=== PATIENT | female | born 1955 | race Caucasian/White ===

== ENCOUNTER 2018-08-08 11:11 | Outpatient (CLI) | payer MEDICARE, BC | END 2018-08-08 11:12 | disposition home or self-care (01) | LOC: BICMAMMO 11:11 | PROVIDERS: ATTEND Family Medicine | DX: Z12.31 Encounter for screening mammogram for malignant neoplasm of breast (principal); Z80.3 Family history of malignant neoplasm of breast | CPT/HCPCS: 77063; 77067 ==

== ENCOUNTER 2018-08-12 12:48 | Outpatient (CLI) | payer MEDICARE, BC ==
--- NOTE | 2018-08-12 14:31 | ULT ---
LEFT BREAST ULTRASOUND LIMITED: History: 63-year-old female presents for left breast ultrasound to evaluate a nodular density on prior mammogr am. FINDINGS: In the 9 o'clock position of the left breast approximately 1 cm from the nipple there is an approxima tely 0.3 x 0.4 cm diameter cyst with a small thin septation which accounts for the mammographic findi ng. IMPRESSION: BIRADS category 2 - benign findings. Continued follow up annual mammograms. Small left breast cyst wi th a thin septation at 9 o'clock 1 cm from the nipple accounting for the mammographic findings. POS: [facility]
== END 2018-08-12 12:49 | disposition home or self-care (01) ==
LOC: BICMAMMO 12:48
PROVIDERS: ATTEND Family Medicine
DX: N63.24 Unspecified lump in the left breast, lower inner quadrant (principal); Z80.3 Family history of malignant neoplasm of breast
CPT/HCPCS: 76642; 77065; G0279

== ENCOUNTER 2018-10-14 09:05 | Outpatient (CLI) | payer MEDICARE, BC ==
--- NOTE | 2018-10-14 13:06 | RAD ---
RIGHT CLAVICLE 2 VIEWS: Date: 10/14/18 HISTORY: Localized swelling. COMPARISON: None. FINDINGS: There is no acute fracture or malalignment of the right clavicle. Mild right distal clavicular osteol ysis. Visualized ribs are unremarkable. IMPRESSION: No acute abnormality of the clavicle. POS: [facility]
--- NOTE | 2018-10-14 13:08 | RAD ---
STERNUM 2 VIEWS: Date: 10/14/18 HISTORY: Localized swelling. COMPARISON: None. FINDINGS: No acute fracture or malalignment. Soft tissues are unremarkable. IMPRESSION: No acute abnormality. POS: [facility]
--- NOTE | 2018-10-14 13:08 | RAD ---
LEFT CLAVICLE 2 VIEWS: Date: 10/14/18 HISTORY: Localized swelling. COMPARISON: None. FINDINGS: No acute fracture or malalignment. There are some calcifications of the superior acromioclavicular li gament. IMPRESSION: Calcifications of the superior coracoclavicular ligament, likely from prior trauma. No acute abnormal ity. POS: [facility]
== END 2018-10-14 09:06 | disposition home or self-care (01) ==
LOC: BICRAD 09:05
PROVIDERS: ATTEND Family Medicine
DX: R22.1 Localized swelling, mass and lump, neck (principal); M24.212 Disorder of ligament, left shoulder
CPT/HCPCS: 71120

== ENCOUNTER 2018-10-25 09:19 | Outpatient (CLI) | payer MEDICARE, BC ==
--- NOTE | 2018-10-25 12:29 | CT ---
CT CHEST WITHOUT CONTRAST: 10/25/2018 PROVIDED CLINICAL HISTORY: Sternoclavicular nodule. FINDINGS: Vascular calcification, including coronary calcium, is demonstrated. The heart, pericardium, and gre at vessels are suboptimally evaluated in the absence of IV contrast, but demonstrate an otherwise unr emarkable unenhanced CT appearance. There is no evidence for thoracic lymph node enlargement. Occasionally sub-6-mm noncalcified nodular densities are present involving the lung parenchyma. The lungs are free of significant opacity. The airway appears patent and of normal caliber. No pleural fluid or pneumothorax apparent. The osseous structures demonstrate no concerning osteoblastic or osteolytic lesions. Bilateral irene oclavicular and first costochondral junction hypertrophic changes are present. There is no evidence for sternoclavicular joint effusion. No lytic or blastic lesions are seen. IMPRESSION: 1. The region of palpable concern corresponds to hypertrophic sternoclavicular joint degenerative ch merari. No significant joint effusion is evident. 2. Vascular calcification, including coronary calcium. POS: [facility]
== END 2018-10-25 09:20 | disposition home or self-care (01) ==
LOC: SCSCT 09:19
PROVIDERS: ATTEND Orthopaedic Surgery
DX: M19.019 Primary osteoarthritis, unspecified shoulder (principal); I25.10 Atherosclerotic heart disease of native coronary artery without angina pectoris
CPT/HCPCS: 71250

== ENCOUNTER 2019-07-09 14:22 | Outpatient (CLI) | payer MEDICARE, BC ==
--- NOTE | 2019-07-09 14:39 | RAD ---
EXAM: Left wrist 3 views: HISTORY: Left wrist pain COMPARISON: None FINDINGS: Arthrosis changes of the triscaphe region and trapezium first metacarpal joint. Borderline widening of the scapholunate space. Evidence for chondrocalcinosis. Degenerative changes. No acute fracture or dislocation or other significant acute osseous abnormality. IMPRESSION: No significant acute process. Arthrosis and degenerative changes as above.
== END 2019-07-09 14:23 | disposition home or self-care (01) ==
LOC: BICRAD 14:22
PROVIDERS: ATTEND Family Medicine
DX: M25.532 Pain in left wrist (principal); M19.032 Primary osteoarthritis, left wrist

== ENCOUNTER 2019-11-26 08:58 | Outpatient (CLI) | payer MEDICARE, BC ==
--- NOTE | 2019-11-26 11:22 | ULT ---
HEPATIC ULTRASOUND INCLUDING COLOR AND SPECTRAL DOPPLER IMAGING: HISTORY: Dysphagia. Fatty liver. History of colonic polyps. FINDINGS: Heterogeneous liver echogenicity, evidence for fatty change. No evidence of gallstones, wall thickeni ng, edema or pericholecystic fluid. The common bile duct is 0.2 cm. The visualized region of the panc reas and right kidney are unremarkable. Antegrade hepatic and portal venous flow. IMPRESSION: Evidence for fatty changes of the liver. No ductal dilatation. Antegrade hepatic and portal venous fl ow. POS: [facility]
== END 2019-11-26 08:59 | disposition home or self-care (01) ==
LOC: ULT 08:58
PROVIDERS: ATTEND Internal Medicine Gastroenterology
DX: R13.10 Dysphagia, unspecified (principal); K76.0 Fatty (change of) liver, not elsewhere classified; Z86.010 Personal history of colon polyps
CPT/HCPCS: 76705

== ENCOUNTER 2020-01-19 14:25 | Outpatient (CLI) | payer MEDICARE, BC ==
--- NOTE | 2020-01-19 15:11 | MMO ---
Bilateral MAMMO Bilat Screen [facility]. CLINICAL HISTORY: Patient is 64 years old and is seen for screening. The patient has no family history of breast cancer. The patient has no personal history of cancer. VIEWS: The views performed were: bilateral craniocaudal with tomosynthesis; bilateral mediolateral oblique with tomosynthesis; and bilateral exaggerated craniocaudal. FILMS COMPARED: The present examination has been compared to prior imaging studies performed at [facility] on 03/28/2016, 08/07/2017, 08/08/2018 and 08/12/2018. This study has been interpreted with the assistance of computer-aided detection. MAMMOGRAM FINDINGS: There are scattered fibroglandular densities. There are stable benign appearing calcifications seen in both breasts. There are also vascular calcifications. There are no suspicious masses, suspicious calcifications, or new areas of architectural distortion. IMPRESSION: THERE IS NO MAMMOGRAPHIC EVIDENCE OF MALIGNANCY. A ROUTINE FOLLOW-UP MAMMOGRAM IN 1 YEAR IS RECOMMENDED. THE RESULTS OF THIS EXAM WERE SENT TO THE PATIENT. ACR BI-RADS Category 2 - Benign finding MAMMOGRAPHY NOTE: 1. A negative mammogram report should not delay a biopsy if a dominant of clinically suspicious mass is present. 2. Approximately 10% to 15% of breast cancers are not detected by mammography. 3. Adenosis and dense breasts may obscure an underlying neoplasm. Reported by: ROSEANN GALARZA MD Electonically Signed: [id number]
== END 2020-01-19 14:26 | disposition home or self-care (01) ==
LOC: BICMAMMO 14:25
PROVIDERS: ATTEND Family Medicine
DX: Z12.31 Encounter for screening mammogram for malignant neoplasm of breast (principal)
CPT/HCPCS: 77063; 77067

== ENCOUNTER 2020-07-26 19:38 | Inpatient (IN) | payer MEDICARE, BC, OTHER ==
[2020-07-26 20:40] LABS: #Eosinphils 0.1 thou/uL (0.0-0.7); #Lymphocytes 2.1 thou/uL (1.20-3.40); #Monocytes 0.8 thou/uL (0.11-0.59); #Neutrophils 5.3 thou/uL (1.40-6.50); %Basophils 0.4 % (0.0-1.0); %Eosinophils 0.8 % (0.0-10.0); %Lymphocytes 25.2 % (21.0-51.0); %Monocytes 9.2 % (0.0-10.0); %Neutrophils 64.4 % (42.0-75.0); Hemoglobin 14.9 g/dL (12.0-16.0); Mean Corpuscular HGB CONC 35.1 g/dL (32.0-36.0); Mean Corpuscular Hemoglobin 29.8 pg (27.0-31.0); Mean Corpuscular Volume 84.9 fL (78.0-98.0); Mean Platelet Volume 8.7 fL (7.4-10.4); Platelet Count 241 thou/uL (130-400); Red Blood Cell (RBC) Count 4.98 mill/uL (4.20-5.40); White Blood Cell (WBC) Count 8.3 thou/uL (4.8-10.8)
--- NOTE | 2020-07-26 20:56 | RAD ---
PORTABLE UPRIGHT FRONTAL CHEST RADIOGRAPH: Date: 07-26-2020 Comparison: None History: Hypokalemia, fatigue. FINDINGS: No pneumothorax, pleural fluid, focal consolidation, or alveolar edema. Heart and mediastinal contour s are unremarkable. IMPRESSION: No acute findings. POS: [facility]
[2020-07-26 21:00] LABS: ALT (SGPT) 20 U/L (8-55); AST (SGOT) 24 U/L (5-34); Alkaline Phosphatase 99 U/L (40-110); Anion Gap 21 mmol/L (10-20); BUN (Urea Nitrogen) 29 mg/dL (9.8-20.1); Bilirubin, Total 0.7 mg/dL (0.2-1.2); CK (CPK) 137 U/L (29-168); Calc. Creatinine Clearance 0 mL/min (70-130); Carbon Dioxide 32 mmol/L (23-31); Chloride 86 mmol/L (98-107); Estimated GFR-MDRD 27; Glucose 185 mg/dL (80-115); Magnesium 1.9 mg/dL (1.6-2.6); Sodium 137 mmol/L (136-145)
[2020-07-26] MEDS ORDERED: NS 0.9% w/ 40 MEQ KCL 1,000 ML IV SCH (21:00)
[2020-07-26 21:06] LABS: Potassium 2.2 mmol/L (3.5-5.1)
[2020-07-26] MEDS ORDERED: Magnesium 2 GM/50 ML BAG (IN WATER) ONE (21:13)
[2020-07-26] MEDS ORDERED: Potassium Chloride 20 MEQ TAB ONE (21:13)
--- NOTE | 2020-07-26 21:55 | CT ---
CT BRAIN: Date: 07/26/2020 PROVIDED CLINICAL HISTORY: Headache. FINDINGS: The ventricular system is normal in size and morphology. There is no evidence for intracranial hemorr beverley or mass effect. There is mucosal thickening involving the sphenoid sinus and ethmoid air cells. The extracranial soft tissues and osseous structures appear otherwise unremarkable. IMPRESSION: 1. No evidence for intracranial hemorrhage or mass effect. 2. Paranasal sinus mucosal disease as described. POS: [facility]
--- NOTE | 2020-07-26 22:07 | PDOC.FPRHP ---
- History of Present Illness Chief Complaint: Hypokalemia History of Present Illness: 65yo female with PMH of DMII presents after finding out she had critically low potassium. Reports weakness and overall not feeling well 3 weeks ago. Last week had one day when she vomitted 3 times. A few days ago on Sunday she was unable to walk and had weakness in her legs. Reports myalgias, dizziness. Dizziness occurs when she stands up, she feels as if she is going to pass out. C/o ataxia, says she "runs into [employer]er". 3 years ago she lost sight in her right eye and has some issues with depth perception. She intentionally has lost 50 pounds in the past year in an attempt to help with her diabetes. She saw Dr Thibodeaux earlier today. He stopped her lasix. ED Course: 60meq PO KCl, NS + KCl @150ml/hr, 2g Mg - Allergies/Adverse Reactions Allergies Allergy/AdvReac Type Severity Reaction Status Date / Time adhesive tape Allergy Verified 01/22/20 13:37 Latex, Natural Rubber Allergy Verified 07/26/20 23:58 Penicillins Allergy Verified 01/22/20 13:37 - Home Medications Medication Instructions Recorded Confirmed Type Furosemide [Lasix] 40 mg PO DAILY 08/25/15 07/27/20 History Hydrochlorothiazide 25 mg PO DAILY 08/25/15 07/27/20 History Levothyroxine Sodium [Synthroid] 112 mcg PO DAILY 08/25/15 07/27/20 History Potassium Chloride 10 meq PO BID 08/25/15 07/27/20 History metFORMIN XR [Glucophage XR] 1,000 mg PO BID 08/25/15 07/27/20 History Pregabalin [Lyrica] 75 mg PO HS 08/29/15 07/27/20 History Aspirin [Ecotrin] 81 mg PO DAILY 07/27/20 07/27/20 History Carvedilol [Coreg] 6.25 mg PO BID 07/27/20 07/27/20 History Dapagliflozin Propanediol [Farxiga] 1 tab PO DAILY 07/27/20 07/27/20 History Dulaglutide [Trulicity] 1.5 mg SQ ASDIR 07/27/20 07/27/20 History Ergocalciferol (Vitamin D2) 50,000 unit PO ASDIR 07/27/20 07/27/20 History [Vitamin D2] Insulin Degludec [Tresiba 14 unit SQ QAM 07/27/20 07/27/20 History Flextouch U-100] Rosuvastatin Calcium [Crestor] 40 mg PO QPM 07/27/20 07/27/20 History Ubidecarenone [Co Q-10] 200 mg PO DAILY 07/27/20 07/27/20 History tiZANidine HCl [Zanaflex] 2 mg PO QPM PRN 07/27/20 07/27/20 History - History PMHx: Right eye blindness, DMII, CAD w/ stent (Dr Vanessa- [employer] worker), HTN PSHx: Hysterectomy, laminectomy FHx: Mother- Heart disease Social: Denies tobacco and drug use. Occasional alcohol use. - Review of Systems General: reports: fatigue. denies: fever/chills, weight/appetite/sleep changes (decreased appetite) Eyes: reports: other (Right eye blindness) ENT: denies: nasal congestion, rhinorrhea Respiratory: denies: cough, congestion Cardiovascular: denies: chest pain, edema Gastrointestinal: reports: nausea, vomiting. denies: diarrhea, abdominal pain Genitourinary: reports: other (hesitancy) Skin: denies: rashes, lesions Musculoskeletal: denies: swelling Neurological: reports: numbness, weakness, other (Has hx of neuropathy, worsening) - Vital signs BP: 134/77 HR: 67 RR: 20 Pox: 98% on RA - Physical Exam Constitutional: NAD, awake, alert and oriented, well developed HEENT: normocephalic and atraumatic, PERRLA, conjunctiva clear, grossly normal hearing, MMM, oropharynx clear Neck: supple, trachea midline Heart: RRR -Heart: 2/6 holosystolic murmur heart at base Lungs: CTAB, no respiratory distress Abdomen: soft, non-tender, no masses/distention Musculoskeletal: normal structure, normal tone Neurological: no focal deficit -Neurological: Cerebellar tests- normal, negative [place], strength normal, sensation intact Skin: no rash/lesions Heme/Lymphatic: no unusual bruising or bleeding Psychiatric: normal mood and affect, good judgment and insight, intact recent and remote memory FMR H&P: Results - Labs Result Diagrams: 07/26/20 20:09 07/27/20 02:23 Lab results: WBC 8.3 thou/uL (4.8-10.8) 07/26/20 20:09 Hgb 14.9 g/dL (12.0-16.0) 07/26/20 20:09 Hct 42.3 % (36.0-47.0) 07/26/20 20:09 MCV 84.9 fL (78.0-98.0) 07/26/20 20:09 Plt Count 241 thou/uL (130-400) 07/26/20 20:09 Neutrophils % 64.4 % (42.0-75.0) 07/26/20 20:09 Sodium 137 mmol/L (136-145) 07/26/20 20:09 Potassium 2.2 mmol/L (3.5-5.1) L* 07/26/20 20:09 Chloride 86 mmol/L (98-107) L 07/26/20 20:09 Carbon Dioxide 32 mmol/L (23-31) H 07/26/20 20:09 BUN 29 mg/dL (9.8-20.1) H 07/26/20 20:09 Creatinine 1.85 mg/dL (0.6-1.1) H 07/26/20 20:09 Glucose 185 mg/dL (80-115) H 07/26/20 20:09 Calcium 9.0 mg/dL (7.8-10.44) 07/26/20 20:09 Total Bilirubin 0.7 mg/dL (0.2-1.2) 07/26/20 20:09 AST 24 U/L (5-34) 07/26/20 20:09 ALT 20 U/L (8-55) 07/26/20 20:09 Alkaline Phosphatase 99 U/L (40-110) 07/26/20 20:09 Creatine Kinase 137 U/L (29-168) 07/26/20 20:09 Serum Total Protein 7.0 g/dL (6.0-8.3) 07/26/20 20:09 Albumin 4.0 g/dL (3.4-4.8) 07/26/20 20:09 - EKG Interpretation EKG: reviewed, QTc 580 - Radiology Interpretation Chest x-ray Status: report reviewed by me (no acute findings) CT scan - head Status: report reviewed by me (no abnormalities) FMR H&P: A/P - Plan #Hypokalemia -K 2.2 -likely due to medications: lasix, HCTZ, also could be due to dehydration as pt states she is not eating and drinking as usual and had N/V -given IV K in ED, LR w/ KCl -continue to monitor, BMP, ekg in am #DENA -Cr 1.85, likely due to dehydration or medications -on IVF, monitor with BMP #Murmur -patient states this is new -echo and carotid doppler ordered #Ataxia -likely due to electrolyte imbalance, but will r/o CVA -CT Head was normal, will order MRI -fall precautions, orthostatics #DM2 -continue home meds -BG ACHS #HTN -continue home meds -hold HCTZ #CAD s/p stent -continue home meds #hypothyroidism -pending TSH -continue home meds Code: Full Diet: HH IVF: LR w/ KCl @ 110ml/hr DVT ppx: lovenox Dispo: Admit inpatient tele, stable, LOS >48hrs FMR H&P: Upper Level - Plan Date/Time: 07/26/202206 Ms Velasquez is a 65yo female with pmh of DMII presents to ED for critical lab of potassium. Over the last couple weeks she has not been feeling well and had an episode of vomiting last week. Reports dizziness and weakness. Also reports difficulty walking, feet numbness. She saw her PCP and had labs drawn today showing hypokalemia and DENA. PE: General: NAD CV: RRR, Systolic murmur radiating to carotids Pulm: CTA b/l Abdomen: Nontender. BS + Extremities: No edema Skin: No rash or lesions Neuro: See manager internet [employer] sales note. No focal deficits. A/P: Hypokalemia likely 2/2 medications -2.2, with Mg 1.8. Unclear cause, possible GI losses. Given 60meq PO and started on KCl in NS at 150 in ED. Will switch to LR and recheck K in 4 hours. Mg in AM. Hold HCTZ and Lasix. Admit to telemetry. Repeat EKG in AM Ataxia -Will need to rule out acute CVA as a cause however it is more likely due to hypokalemia. CT head in ED showed no acute findings. Avoid CTA of head and neck due to DENA. Ordered MRI and carotid US for further evaluation. Systolic Murmur -Also with abnormal EKG findings and possible CVA will go ahead and order Echo. DENA -Cr 1.85, no prior CKD. Likely 2/2 dehydration. Continue IVF, check BMP in AM. Anion Gap -19. Will check beta-hydroxybutyrate and lactic acid. I, Tameka Marquez, have evaluated this patient and agree with findings/plan as outlined by manager internet ret[employer] sales resident. Pertinent changes/additions are listed here. Addendum - Attending - Attending Attestation Date/Time: 07/26/20 1538 I personally evaluated the patient and discussed the management with Dr. Kulkarni/Jimmy. I agree with the History, Examination, Assessment and Plan documented above with any addition or exceptions noted below. 65-year-old female with past history of hypertension, hyperlipidemia, coronary artery disease, hypothyroidism, insulin-dependent type 2 diabetes, and right eye blindness. She presented after receiving a phone call from her PCPs office that she had at abnormally low potassium. Potassium from PCPs office was 2.2. Repeat in the ER was 2.3.she states over the past 2-3 weeks she has had pro gressively worsening dizziness, nausea, and multiple episodes of vomiting. She has been densely drawn to lose weight over the past 6 months due to her multiple chronic morbidities. States she takes oral Lasix for edema that she used to experience when she was much heavier. His recent changes in her medications. Reports compliance with medication therapy. Exam was unremarkable with exception of blindness in her right eye and heart murmur. Labs were otherwise unremarkable with exception of her critically low potassium. Admit inpatient telemetry for hypokalemia likely secondary to diuretic therapy and new onset nausea and vomiting. she appears to have a hypochloremic hypokalemic metabolic alkalosis versus a contraction alkalosis at this time. we will replete intravascular volume and potassium with IV fluids and IV potassium. closely monitor BMP. we will collect urine studies to better characterize her pathophysiology. Check TSH. Carotid Dopplers and MRI of the brain to evaluate dizziness. She had a normal neuro exam with the exception of blindness in her right eye which she states is chronic. echocardiogram to evaluate murmur.
[2020-07-26] MEDS ORDERED: Dextrose 50% Abboject 50 ML SYRINGE SLOW IVP PRN (23:26)
[2020-07-26] MEDS ORDERED: Dextrose 5% in Water 1,000 ML IV PRN (23:26)
[2020-07-26] MEDS ORDERED: Acetaminophen 650 MG Suppository PR PRN (23:26)
[2020-07-26] MEDS ORDERED: HumaLOG 300 UNITS/3 ML VIAL SC PRN ×2 (23:26)
[2020-07-26 23:28] LABS: Lactic Acid 2.3 mmol/L (0.5-2.2)
[2020-07-26] MEDS ORDERED: Potassium Chloride 20 MEQ in Lactated Ringer's 1,000 ML IV SCH (23:45)
[2020-07-26 23:57] LABS: Anion Gap 22 mmol/L (10-20); BUN (Urea Nitrogen) 29 mg/dL (9.8-20.1); Calc. Creatinine Clearance 0 mL/min (70-130); Carbon Dioxide 32 mmol/L (23-31); Chloride 87 mmol/L (98-107); Estimated GFR-MDRD 31; Glucose 143 mg/dL (80-115); Sodium 139 mmol/L (136-145)
[2020-07-27] LABS: Potassium 2.2 mmol/L (3.5-5.1)
[2020-07-27 02:49] LABS: Anion Gap 14 mmol/L (10-20); BUN (Urea Nitrogen) 28 mg/dL (9.8-20.1); Calc. Creatinine Clearance 44 mL/min (70-130); Calcium 8.9 mg/dL (7.8-10.44); Carbon Dioxide 35 mmol/L (23-31); Chloride 92 mmol/L (98-107); Estimated GFR-MDRD 36; Glucose 98 mg/dL (80-115); Sodium 139 mmol/L (136-145)
[2020-07-27 02:59] LABS: Potassium 2.4 mmol/L (3.5-5.1)
[2020-07-27] MEDS: POTASSIUM CHLORIDE IV SCH ×3 (05:01→21:50)
[2020-07-27] MEDS: LACTATED RINGER S IV SCH ×3 (05:01→21:50)
[2020-07-27] MEDS: Levothyroxine Sodium 112 MCG TAB PO SCH (05:05)
[2020-07-27 06:59] LABS: Anion Gap 15 mmol/L (10-20); BUN (Urea Nitrogen) 24 mg/dL (9.8-20.1); Calc. Creatinine Clearance 46 mL/min (70-130); Calcium 8.6 mg/dL (7.8-10.44); Carbon Dioxide 32 mmol/L (23-31); Chloride 95 mmol/L (98-107); Estimated GFR-MDRD 38; Glucose 81 mg/dL (80-115); Sodium 139 mmol/L (136-145)
[2020-07-27 07:12] LABS: Potassium 2.7 mmol/L (3.5-5.1)
--- NOTE | 2020-07-27 07:37 | ULT ---
BILATERAL CAROTID DUPLEX ULTRASOUND: HISTORY: Dizziness and weakness TECHNIQUE: Grayscale, color-flow and spectral Doppler ultrasound imaging of the extracranial carotid artery syst ems and vertebral arteries was performed bilaterally. FINDINGS: There is moderate atherosclerotic plaque involving the left carotid bulb and proximal left ICA. There is mild atherosclerotic plaque involving the proximal right ICA. There is minimal thickening of the common carotid arteries bilaterally. The peak systolic velocity in the right ICA measures 89.3 cm/s. The peak systolic velocity in the ri ght CCA measures 57.2 cm/s. The peak systolic velocity in the left ICA measures 44.1 cm/s. The peak systolic velocity in the l eft CCA measures 70.6 cm/s. The right IC/CC ratio is1.56. The left IC/CC ratio is 0.62. Vertebral flow: antegrade, bilaterally. . IMPRESSION: No hemodynamically significant stenosis of Both ICAs.
[2020-07-27] MEDS ORDERED: Potassium Chloride 20 MEQ in Premix Bag 1 BAG IVPB SCH ×3 (08:30→15:45)
[2020-07-27] MEDS: Ubidecarenone 50 MG CAP PO SCH (08:52)
[2020-07-27] MEDS: Aspirin 81 mg Enteric Coated Tablet PO SCH (08:52)
[2020-07-27] MEDS: metFORMIN XR 500 MG TAB PO SCH ×2 (08:52→20:57)
[2020-07-27] MEDS: Empagliflozin 25 MG TAB PO SCH (08:53)
[2020-07-27] MEDS: Enoxaparin Sodium 40 MG/0.4 ML SYRINGE SC SCH (08:53)
[2020-07-27] MEDS: Potassium Chloride 20 MEQ TAB PO SCH ×2 (08:53→16:32)
[2020-07-27] MEDS: Carvedilol 6.25 MG TAB PO SCH ×2 (08:53→20:57)
[2020-07-27] MEDS: Insulin Glargine 14 UNITS in Pre-Filled Syringe 1 EACH SC SCH (08:53)
[2020-07-27] MEDS ORDERED: Non-Formulary Item 1 EACH (Insulin Degludec [Tresiba Flextouch U-100] 100 UNIT/ML Insuln. SQ SCH (09:00)
[2020-07-27] MEDS ORDERED: Non-Formulary Item 1 EACH (Dapagliflozin Propanediol [Farxiga] 10 MG Tablet) PO SCH (09:00)
[2020-07-27] MEDS ORDERED: Nitrofurantoin Monohyd/M-Cryst 100 MG CAP PO SCH (09:00)
[2020-07-27] MEDS ORDERED: Dulaglutide [Trulicity] 1.5 MG/0.5 ML Pen.Injctr SC SCH (09:00)
--- NOTE | 2020-07-27 11:05 | PDOC.FM ---
- Subjective Subjective: Patient feeling well this morning. Denies any complaints. States she cannot really tell if dizziness has changed since has not tried to walk around the room. Encouraged to try to ambulate with assistance today. - Objective MAR Reviewed: Yes Vital Signs & Weight: Vital Signs (12 hours) Temp Pulse Resp BP Pulse Ox 07/27/20 08:00 97.0 F L 71 17 131/73 99 07/27/20 04:35 98.3 F 60 20 119/58 L 07/26/20 23:55 99 07/26/20 23:50 98.9 F 64 20 162/77 H 99 Weight Weight 73.754 kg I&O: 07/26/20 07/27/20 07/28/20 06:59 06:59 06:59 Intake Total 1255 Output Total 450 Balance 805 Result Diagrams: 07/26/20 20:09 07/27/20 06:30 Phys Exam - Physical Examination Constitutional: NAD HEENT: moist MMs, sclera anicteric Neck: full ROM Respiratory: clear to auscultation bilateral Cardiovascular: RRR grade II/III systolic murmur over aortic valve Gastrointestinal: soft, positive bowel sounds Musculoskeletal: no edema, pulses present Neurological: normal sensation, moves all 4 limbs Psychiatric: normal affect, A&O x 3 Skin: no rash, normal turgor Dx/Plan (1) Hypokalemia Code(s): E87.6 - HYPOKALEMIA Status: Acute (2) Dehydration Code(s): E86.0 - DEHYDRATION Status: Acute (3) Diabetes mellitus Code(s): E11.9 - TYPE 2 DIABETES MELLITUS WITHOUT COMPLICATIONS Status: Chronic Qualifiers: Diabetes mellitus type: type 2 Diabetes mellitus complication status: without complication Qualified Code(s): E11.9 - Type 2 diabetes mellitus without complications (4) Hypertension Code(s): I10 - ESSENTIAL (PRIMARY) HYPERTENSION Status: Chronic Qualifiers: Hypertension type: essential hypertension Qualified Code(s): I10 - Essential (primary) hypertension (5) Hypothyroidism Code(s): E03.9 - HYPOTHYROIDISM, UNSPECIFIED Status: Chronic Qualifiers: Hypothyroidism type: acquired Qualified Code(s): E03.9 - Hypothyroidism, unspecified - Plan Plan: Patient is a 65 yo female who presents with low potassium: #Hypokalemia -K 2.2 > 2.7 this AM, continue to replace -likely due to medications: lasix, HCTZ, also dehydration could be contributing as pt states she is not eating and drinking as usual and had N/V -given IV K in ED, LR w/ KCl -continue to monitor -repeat BMP at 1300 today -IV KCl prn, rukhsana PO KCl 40 meq BID #DENA -likely due to dehydration or medications -Cr 1.85 > 1.37 this am, improving -on IVF, LR with KCl 110 ml/hr -monitor with BMP #Systolic Murmur -patient states this is new to her -echo pending -carotid doppler normal #Ataxia -likely due to electrolyte imbalance, but will r/o CVA -CT Head was normal, will order MRI -fall precautions, orthostatics #DM2 -continue home meds -BG ACHS #HTN -continue home meds -hold HCTZ #CAD s/p stent -continue home meds #Hypothyroidism -TSH 0.88 -continue home meds Code: Full Diet: HH IVF: LR w/ KCl 60 meq @ 110ml/hr DVT ppx: lovenox Dispo: Stable, Admit to inpatient on telemetry unit. Obtain further imaging studies today. Continue to replace Potassium. Anticipate discharge in <48hrs. Addendum - Attending - Attending Attestation Date/Time: 07/27/20 3149 I personally evaluated the patient and discussed the management with Dr. Capellan. I agree with the History, Examination, Assessment and Plan documented above with any addition or exceptions noted below.
[2020-07-27] MEDS: Acetaminophen 325 MG TAB PO PRN ×2 (12:46→20:56)
[2020-07-27 13:24] VITALS: BMI 24.7
[2020-07-27 15:24] LABS: Anion Gap 15 mmol/L (10-20); BUN (Urea Nitrogen) 22 mg/dL (9.8-20.1); Calc. Creatinine Clearance 52 mL/min (70-130); Calcium 8.6 mg/dL (7.8-10.44); Carbon Dioxide 27 mmol/L (23-31); Chloride 98 mmol/L (98-107); Estimated GFR-MDRD 44; Glucose 116 mg/dL (80-115); Sodium 137 mmol/L (136-145)
--- NOTE | 2020-07-27 15:30 | MRI ---
MRI BRAIN WITHOUT CONTRAST: Date: 07/27/2020 HISTORY: Ataxia, vomiting, and weakness. Headache. FINDINGS: Correlation made with the CT scan of 07/26/2020. No restricted diffusion is seen. No evidence of infarct, hemorrhage, midline shift, or abnormal extra -axial fluid collections are noted. The ventricular size is appropriate and the basilar cisterns are patent. There is mild mucosal disease in the paranasal sinuses. IMPRESSION: No evidence of acute intracranial process. POS: [facility]
[2020-07-27] MEDS ORDERED: Pregabalin 75 MG CAP PO SCH (21:00)
[2020-07-27] MEDS ORDERED: Rosuvastatin 20 MG TAB PO SCH (21:00)
[2020-07-27] MEDS ORDERED: Pregabalin 50 MG CAP PO SCH (21:00)
[2020-07-28 04:43] LABS: Anion Gap 13 mmol/L (10-20); BUN (Urea Nitrogen) 19 mg/dL (9.8-20.1); Calc. Creatinine Clearance 54 mL/min (70-130); Calcium 8.3 mg/dL (7.8-10.44); Carbon Dioxide 24 mmol/L (23-31); Chloride 105 mmol/L (98-107); Estimated GFR-MDRD 46; Glucose 101 mg/dL (80-115); Potassium 3.5 mmol/L (3.5-5.1); Sodium 138 mmol/L (136-145)
[2020-07-28] MEDS: Levothyroxine Sodium 112 MCG TAB PO SCH (05:14)
[2020-07-28] MEDS: Lactated Ringer's 1,000 ML IV SCH ×2 (05:30→09:10)
[2020-07-28 08:01] VITALS: BP 127/80; TEMP 96.1
[2020-07-28] MEDS ORDERED: Furosemide 20 MG TAB PO SCH (09:00)
[2020-07-28] MEDS: Ubidecarenone 50 MG CAP PO SCH (09:07)
[2020-07-28] MEDS: Potassium Chloride 20 MEQ TAB PO SCH (09:07)
[2020-07-28] MEDS: Carvedilol 6.25 MG TAB PO SCH (09:08)
[2020-07-28] MEDS: Empagliflozin 25 MG TAB PO SCH (09:08)
[2020-07-28] MEDS: Aspirin 81 mg Enteric Coated Tablet PO SCH (09:08)
[2020-07-28] MEDS: metFORMIN XR 500 MG TAB PO SCH (09:08)
[2020-07-28] MEDS: Enoxaparin Sodium 40 MG/0.4 ML SYRINGE SC SCH (09:09)
[2020-07-28] MEDS: Insulin Glargine 14 UNITS in Pre-Filled Syringe 1 EACH SC SCH (09:09)
--- NOTE | 2020-07-28 09:30 | PDOC.FM ---
- Subjective Subjective: Patient states she feels well this morning. Denies any headaches, lightheadedness, or dizziness. Discussed results of all her studies yesterday including CT head, MRI head, carotid dopplers, and cardiac ECHO. Her potassium has also improved back up to 3.5 this morning. Patient says she took Lasix for swelling and HCTZ for blood pressure, these have been held since admission. Her blood pressures have been normotensive during this hospital stay. Patient does state she feels like her hands and lower legs are starting to swell again this morning. - Objective MAR Reviewed: Yes Vital Signs & Weight: Vital Signs (12 hours) Temp Pulse Resp BP Pulse Ox 07/28/20 08:00 96.1 F L 52 L 17 127/80 100 07/28/20 05:20 98.0 F 61 16 102/66 Weight Admit Weight 73.482 kg Weight 75.886 kg I&O: 07/27/20 07/28/20 07/29/20 06:59 06:59 06:59 Intake Total 1255 2907 Output Total 450 2450 Balance 805 457 Result Diagrams: 07/26/20 20:09 07/28/20 03:52 Phys Exam - Physical Examination Constitutional: NAD HEENT: moist MMs, sclera anicteric Neck: no JVD, supple, full ROM Respiratory: no wheezing, clear to auscultation bilateral Cardiovascular: RRR grade II systolic murmur over aortic valve Gastrointestinal: soft, non-tender, no distention Musculoskeletal: no edema, pulses present Neurological: normal sensation, moves all 4 limbs Psychiatric: normal affect, A&O x 3 Skin: no rash, normal turgor Dx/Plan (1) Hypokalemia Code(s): E87.6 - HYPOKALEMIA Status: Acute (2) Dehydration Code(s): E86.0 - DEHYDRATION Status: Acute (3) Diabetes mellitus Code(s): E11.9 - TYPE 2 DIABETES MELLITUS WITHOUT COMPLICATIONS Status: Chronic Qualifiers: Diabetes mellitus type: type 2 Diabetes mellitus complication status: without complication Qualified Code(s): E11.9 - Type 2 diabetes mellitus without complications (4) Hypertension Code(s): I10 - ESSENTIAL (PRIMARY) HYPERTENSION Status: Chronic Qualifiers: Hypertension type: essential hypertension Qualified Code(s): I10 - Essential (primary) hypertension (5) Hypothyroidism Code(s): E03.9 - HYPOTHYROIDISM, UNSPECIFIED Status: Chronic Qualifiers: Hypothyroidism type: acquired Qualified Code(s): E03.9 - Hypothyroidism, unspecified - Plan Plan: Patient is a 65 yo female who presents with low potassium: #Hypokalemia -K 2.2 > 3.5 this AM, continue to replace with home dose -likely due to medications: lasix, HCTZ, also dehydration could be contributing as pt states she is not eating and drinking as usual and had N/V -given IV K in ED, LR w/ KCl until 07/28, transition to plain LR -continue to monitor -rukhsana PO KCl 40 meq BID -will plan to restart Lasix 20 mg (half of her home dose), instructed patient to discontinue HCTZ and will need to continue to monitor home BP -may consider starting Spironolactone instead of Lasix in the future, can discuss outpatient with PCP #DENA -likely due to dehydration or medications -Cr 1.85 > 1.17 this am, improving -on IVF, LR 110 ml/hr -monitor with BMP #Systolic Murmur -patient states this is new to her -echo shows EF 60-65%, diastolic dysfunction, aortic leaflets thickened with some calcifications -carotid doppler normal -follows with [facility] at [facility], instructed patient to sign a release of records when discharged to 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 Imaging studies normal. Continue to replace Potassium. Anticipate discharge later today. Addendum - Attending - Attending Attestation Date/Time: 07/28/20 0932 I personally evaluated the patient and discussed the management with Dr. Capellan. I agree with the History, Examination, Assessment and Plan documented above with any addition or exceptions noted below.
[2020-07-28 12:01] LABS: SARS-CoV-2 MS2 Positive; SARS-CoV-2 N Gene Negative; SARS-CoV-2 S Gene Negative; SARS-CoV-2 by NAA Not Detected (NotDetected); SARS-CoV-2 orf1ab Negative
--- NOTE | 2020-07-29 04:51 | PQF ---
CLINICAL DOCUMENTATION CLARIFICATION FORM: Dear : Ken Carrillo Date / Time: 07/29/2020 0468 Please exercise your independent, professional judgment in responding to the clarification form. Clinical indicators are provided on the bottom of this form for your review Please check appropriate box(es): [ ] Protein Calorie Malnutrition: [ ] Mild [ ] Moderate [ ] Severe [ ] Other Malnutrition (please specify) [ ] Underweight without malnutrition [ ] Cachexia [ ] Other diagnosis [ x ] Unable to determine In addition, please specify: Present on Admission (POA): [ ] Yes [ ] No [ x ] Unable to determine Physician Signature: Date/Time: For continuity of documentation, please document condition throughout progress notes and discharge summary. Thank You. To be completed by CDI/Coding staff for physician review: Present Clinical Indicators - Signs / Symptoms / Labs Results and Location in Medical Record [X] BP 162/77, Pulse 64, Resp 20, Temp 98.9 Vital signs 07/26 [X] Serum Shanika protein 7.0, Albumin 4.0, Globulin 3.0, Ratio 1.3 Laboratory 07/26 [X] BMI 25.4 Nutritional assessment Dietitian Fraire 07/27 [X] Poor appetite Nutritional assessment Dietitian Fraire 07/27 [X] Pt report of no PO intake several days last week. 25% weight loss in the last year with unintentional 2.4% loss in last 2 weeks Nutritional assessment Dietitian Fraire 07/27 Present Risk Factors Results and Location in Medical Record [X] 65 year-old Female Nutritional assessment Dietitian Fraire 07/27 [X] Hypokalemia Nutritional assessment Dietitian Fraire 07/27 [X] Dehdyration Nutritional assessment Dietitian Fraire 07/27 [X] DENA Nutritional assessment Dietitian Fraire 07/27 [X] DM Nutritional assessment Dietitian Fraire 07/27 Present Treatments Results and Location in Medical Record [X] Dietary consult Nutritional assessment Dietitian Fraire 07/27 [X] Nutritional supplements Nutritional assessment Dietitian Fraire 07/27 [X] Weight monitoring Nutritional assessment Dietitian Cope 07/27 [X] Oral intake mornitoring Nutritional assessment Dietitian Cope 07/27 [X] Appetite stimulant - medication Nutritional assessment Dietitian Cope 07/27 CDS/Beef Skinner Signature: Casandra Kirk Phone #: ext [phone] Date/Time: 07/29/2020 045 Moderate Malnutrition (in acute illness) ? Energy Intake: <75% of estimated energy requirement for > 7 days ? Weight Loss: 1-2%/1 week; 5%/ 1 month; 7.5%/3 months ? Other: mild body fat loss; mild muscle mass loss; mild fluid accumulation; Severe Malnutrition (in acute illness) ? Energy Intake: ? 50% of estimated energy requirement for ? 5 days ? Weight Loss: >2%/1 week; >5%/1 month; >7.5%/3 months ? Other: moderate body fat loss; moderate muscle mass loss; moderate- severe fluid accumulation; measurably reduced creative writing teacher strength Moderate Malnutrition (in chronic illness) ? Energy Intake: <75% of estimated energy requirement for ?1 month ? Weight Loss: 5%/1 month; 7.5%/3 months; 10%/6 months; 20%/1 year ? Other: mild body fat loss; mild muscle mass loss; mild fluid accumulation Severe Malnutrition (in chronic illness) ? Energy Intake: ?75% of estimated energy requirement for ?1 month ? Weight Loss: >5%/1 month; >7.5%/3 months; >10%/6 months; >20%/1 year ? Other: severe body fat loss; severe muscle mass loss; severe fluid accumulation; measurably reduced creative writing teacher strength This is a permanent part of the Medical Record [facility]
--- NOTE | 2020-07-29 13:05 | DIS ---
DATE OF ADMISSION: 07/26/2020 DATE OF DISCHARGE: 07/28/2020 RESIDENT: Alana Capellan DO ADMITTING ATTENDING: Jamie Garcia MD DISCHARGE ATTENDING: Ken Carrillo MD CONSULTS: None. PROCEDURES: 1. Chest x-ray on July 26, 2020: No acute findings. 2. Brain CT on July 26, 2020: No evidence for intracranial hemorrhage or mass effect. Paranasal sinus mucosal disease noted. 3. Carotid Doppler study on July 27, 2020: No hemodynamically significant stenosis of both ICAs. 4. Brain MRI on July 27, 2020: No evidence of acute intracranial process. There is mild mucosal disease in the paranasal sinuses. 5. Echocardiogram on July 27, 2020: Ejection fraction estimated at 60% to 65%. Diastolic dysfunction. Mild mitral annular calcification present. Trace mitral regurgitation present. Aortic valve leaflets are somewhat thickened. Mild calcifications. Trace tricuspid regurgitation. PRIMARY DIAGNOSIS: Hypokalemia. SECONDARY DIAGNOSES: 1. Acute kidney injury. 2. Systolic murmur. 3. Ataxia of gait. 4. Type 2 diabetes mellitus. 5. Hypertension. 6. Coronary artery disease, status post stent placement. 7. Hypothyroidism. DISCHARGE MEDICATIONS: 1. Levothyroxine 112 mcg p.o. daily. 2. Metformin XR 1000 mg p.o. b.i.d. 3. Potassium chloride 10 mEq p.o. b.i.d. 4. Lyrica 75 mg p.o. at bedtime. 5. Aspirin 81 mg p.o. daily. 6. CoQ10 of 200 mg p.o. daily. 7. Trulicity 1.5 mg subcu as directed. 8. Farxiga 10 mg p.o. daily. 9. Tresiba FlexTouch 14 units subcu q.a.m. 10. Vitamin D2 of 50,000 units p.o. as directed. 11. Carvedilol 6.25 mg p.o. b.i.d. 12. Rosuvastatin 40 mg p.o. at bedtime. 13. Tizanidine 2 mg p.o. at bedtime as needed. 14. Furosemide 20 mg p.o. daily. DISCONTINUED MEDICATIONS: 1. Hydrochlorothiazide 25 mg p.o. daily. 2. Furosemide 40 mg p.o. daily. HISTORY OF PRESENT ILLNESS/HOSPITAL COURSE: The patient is a 65-year-old female who presents for direct admission after she was found to have a critically low potassium of 2.2 on labs with her PCP, Dr. Thibodeaux. The patient reported that she felt weak for about three weeks. She also had some episodes of vomiting. A few days prior to admission, she states she had some difficulty with walking, felt weak in her legs, and reported dizziness upon standing. The patient says she has been "running into heller" over the last month or so. She intentionally has lost 50 to 75 pounds in the last one year in an attempt to help with her diabetes and hypertension. The patient was sent by her PCP to the emergency department due to low potassium. In the emergency department, she was given 60 mEq p.o. potassium chloride, started on IV fluids of normal saline with 60 mEq of potassium with a rate of 150 mL/h. Also given 2 g of magnesium IVPB. The patient was admitted to the telemetry unit for further monitoring and replacement of potassium. She had several studies completed with results as above for investigation of her gait ataxia. These all resulted as normal. The patient also was noted on exam to have a systolic murmur. An echocardiogram and carotid Doppler studies were completed with results as above. Over the course of the next two days, the patient's potassium slowly increased back to a normal level upon discharge of 3.5. The patient was instructed to discontinue hydrochlorothiazide. She was also instructed to decrease her Lasix dose from 40 mg down to 20 mg daily. The patient needs to continue taking her supplemental potassium tablets at home as instructed by her PCP. The patient was discharged home in stable condition on the afternoon of July 28, 2020. DISPOSITION: Stable. DISCHARGE INSTRUCTIONS: 1. Location: Home. 2. Diet: Heart healthy. 3. Activity: As tolerated. 4. Followup: Follow up with Dr. Thibodeaux in 2 to 3 days for hospital followup. Job ID: [id number]
[2020-08-01] MEDS ORDERED: Ergocalciferol 1.25 MG(50,000 UNITS) CAP PO SCH (09:00)
--- NOTE | 2020-08-01 12:47 | EKG ---
Test Reason : Blood Pressure : / mmHG Vent. Rate : 059 BPM Atrial Rate : 059 BPM P-R Int : 168 ms QRS Dur : 104 ms QT Int : 456 ms P-R-T Axes : 058 -06 264 degrees QTc Int : 451 ms Sinus bradycardia T wave abnormality, consider lateral ischemia Abnormal ECG Confirmed by JOHNSON OLIVEIRA MD ([id number]) on 08/01/2020 12:47:35 PM Referred By: CARLOS *R Confirmed By:JOHNSON OLIVEIRA MD
== END 2020-07-28 14:14 | disposition home or self-care (01) | DRG 683 ==
LOC: ERS 19:38 → 2NO 22:05
PROVIDERS: ADMIT Family Medicine; ATTEND Family Medicine
DX: N17.9 Acute kidney failure, unspecified (principal); E87.3 Alkalosis; Z20.828 Contact with and (suspected) exposure to other viral communicable diseases; E87.6 Hypokalemia; H54.40 Blindness, one eye, unspecified eye; I25.10 Atherosclerotic heart disease of native coronary artery without angina pectoris; I10 Essential (primary) hypertension; E11.40 Type 2 diabetes mellitus with diabetic neuropathy, unspecified; E86.0 Dehydration; R01.1 Cardiac murmur, unspecified; R27.0 Ataxia, unspecified; E03.9 Hypothyroidism, unspecified; E87.8 Other disorders of electrolyte and fluid balance, not elsewhere classified; T50.1X5A Adverse effect of loop [high-ceiling] diuretics, initial encounter; T50.2X5A Adverse effect of carbonic-anhydrase inhibitors, benzothiadiazides and other diuretics, initial encounter; Z95.5 Presence of coronary angioplasty implant and graft; Z91.040 Latex allergy status; Z88.0 Allergy status to penicillin; Z91.048 Other nonmedicinal substance allergy status; Z79.899 Other long term (current) drug therapy; Z79.890 Hormone replacement therapy; Z79.84 Long term (current) use of oral hypoglycemic drugs; Z90.710 Acquired absence of both cervix and uterus
CPT/HCPCS: 36415; 36416; 70450; 70551; 71045; 80048; 80053; 80061; 81001; 82010; 82550; 83036; 83605; 83735; 83930; 84443; 84484; 85025; 87086; 87635; 93005; 93010; 93306; 93880; J1650; J1815; J3475; J3480; J7120; U0003

== ENCOUNTER 2020-08-23 15:10 | Outpatient (CLI) | payer MEDICARE, BC ==
--- NOTE | 2020-08-23 16:56 | RAD ---
Exam:4 views right elbow HISTORY: Pain. Fell 3 weeks ago. COMPARISON: None FINDINGS: No fracture, cortical irregularity or periosteal reaction. No joint effusion. IMPRESSION: No fracture.
== END 2020-08-23 15:11 | disposition home or self-care (01) ==
LOC: BICRAD 15:10
PROVIDERS: ATTEND Family Medicine
DX: M25.521 Pain in right elbow (principal)
CPT/HCPCS: 36415; 80048

== ENCOUNTER 2022-04-13 10:56 | Outpatient (CLI) | payer MEDICARE, BC | END 2022-04-13 10:57 | disposition home or self-care (01) | LOC: BICMAMMO 10:56 | PROVIDERS: ATTEND Family Medicine | DX: Z12.31 Encounter for screening mammogram for malignant neoplasm of breast (principal) | CPT/HCPCS: 77063; 77067 ==

== ENCOUNTER 2022-09-26 08:50 | Outpatient (CLI) | payer MEDICARE, BC | END 2022-09-26 08:51 | disposition home or self-care (01) | LOC: TBSIIMAG 08:50 | PROVIDERS: ATTEND Specialist | DX: M51.16 Intervertebral disc disorders with radiculopathy, lumbar region (principal); M48.061 Spinal stenosis, lumbar region without neurogenic claudication; M50.021 Cervical disc disorder at C4-C5 level with myelopathy; M50.121 Cervical disc disorder at C4-C5 level with radiculopathy; M50.022 Cervical disc disorder at C5-C6 level with myelopathy; M50.122 Cervical disc disorder at C5-C6 level with radiculopathy; M50.023 Cervical disc disorder at C6-C7 level with myelopathy; M50.123 Cervical disc disorder at C6-C7 level with radiculopathy; M50.11 Cervical disc disorder with radiculopathy, high cervical region; M48.02 Spinal stenosis, cervical region; G95.89 Other specified diseases of spinal cord | CPT/HCPCS: 72141; 72148 ==

== ENCOUNTER 2022-11-09 14:44 | Outpatient (CLI) | payer MEDICARE, BC ==
[2022-11-09 16:42] LABS: Hemoglobin 13.5 g/dL (12.0-15.5); Mean Corpuscular HGB CONC 32.9 g/dL (32.0-36.0); Mean Corpuscular Hemoglobin 29.2 pg (27.0-33.0); Mean Corpuscular Volume 88.6 fl (81.6-98.3); Mean Platelet Volume 10.6 fl (7.4-10.4); Platelet Count 238 10x3/uL (150-450); RBC Distribution Width 13.9 % (11.5-14.5); Red Blood Cell (RBC) Count 4.63 10x6/uL (3.90-5.03); White Blood Cell (WBC) Count 4.7 10x3/uL (3.5-10.5)
[2022-11-09 16:57] LABS: PTT 22.8 sec (22.0-33.0); Prothrombin Time 10.9 sec (9.5-12.1)
[2022-11-09 17:23] LABS: Anion Gap 18 mmol/L (10-20); BUN (Urea Nitrogen) 9 mg/dL (9.8-20.1); Calc. Creatinine Clearance 0 mL/min (70-130); Calcium 9.2 mg/dL (7.8-10.44); Carbon Dioxide 22 mmol/L (23-31); Chloride 105 mmol/L (98-107); Estimated GFR 89; Glucose 150 mg/dL (80-115); Potassium 4.1 mmol/L (3.5-5.1); Sodium 141 mmol/L (136-145)
== END 2022-11-09 14:45 | disposition home or self-care (01) ==
LOC: LABBT 14:44
PROVIDERS: ATTEND Surgery
DX: Z01.818 Encounter for other preprocedural examination (principal); M48.02 Spinal stenosis, cervical region; M54.12 Radiculopathy, cervical region
CPT/HCPCS: 80048; 85027; 85610; 85730; 93005; 93010

== ENCOUNTER 2022-11-09 14:45 | Inpatient (IN) | payer MEDICARE, BC ==
[2022-11-14] MEDS ORDERED: Thrombin 5000 UNITS/5 ML VIAL ONE (11:17)
[2022-11-14] MEDS ORDERED: Fentanyl 250 MCG/5 ML VIAL ONE (12:04)
[2022-11-14] MEDS ORDERED: Levofloxacin 500 mg/D5W 100 ml Premix Bag ONE (12:10)
[2022-11-14] MEDS ORDERED: Clindamycin/D5W 900 mg/50 ml Premix Bag ONE (12:10)
[2022-11-14] MEDS ORDERED: Phenylephrine 10 MG/ML VIAL ONE (12:26)
[2022-11-14] MEDS ORDERED: Metoclopramide HCl 10 MG/2 ML VIAL ONE (12:30)
[2022-11-14] MEDS ORDERED: Rocuronium Bromide 10 MG/ML (10ML VIAL) ONE (12:30)
[2022-11-14] MEDS ORDERED: Dexamethasone 20 MG/5 ML VIAL ONE (12:30)
[2022-11-14] MEDS ORDERED: PROPOFOL 200 MG/20 ML VIAL ONE (12:30)
[2022-11-14] MEDS ORDERED: Ondansetron PF 4 MG/2 ML Vial ONE (12:30)
[2022-11-14] MEDS ORDERED: Lidocaine 1% PF 5 ML VIAL ONE (12:30)
[2022-11-14] MEDS ORDERED: Dextrose 50% Abboject 50 ML SYRINGE ONE (12:36)
[2022-11-14 12:37] LABS: SARS-CoV-2 NAA Rapid Test DETECTED (NotDetected)
[2022-11-14] MEDS ORDERED: traMADol HCl 50 MG TAB PO PRN (12:59)
[2022-11-14] MEDS ORDERED: Morphine 2 MG/ML VIAL SLOW IVP PRN (12:59)
[2022-11-14] MEDS ORDERED: Ondansetron PF 4 MG/2 ML Vial IVP PRN (12:59)
[2022-11-14] MEDS ORDERED: Acetaminophen 325 MG TAB PO PRN (12:59)
[2022-11-14] MEDS ORDERED: Acetaminophen/Codeine 30-300mg Tablet PO PRN (12:59)
[2022-11-14] MEDS ORDERED: tiZANidine HCl 4 MG TAB PO PRN (13:03)
[2022-11-14] MEDS ORDERED: Cepastat Lozenges 1 LOZ PO PRN (13:04)
[2022-11-14] MEDS ORDERED: hydrALAZINE 20 MG/ML VIAL SLOW IVP PRN (13:04)
[2022-11-14] MEDS ORDERED: Chloraseptic Spray 180 ml Bottle PO PRN (13:04)
[2022-11-14] MEDS ORDERED: SUGAMMADEX SODIUM 200 MG/2 ML VIAL ONE (14:32)
[2022-11-14] MEDS ORDERED: Promethazine HCl 25 MG/ML VIAL IM PRN (15:09)
[2022-11-14] MEDS ORDERED: Ondansetron HCl/PF 4 MG/2 ML Vial IVP PRN (15:09)
[2022-11-14] MEDS ORDERED: Non-Formulary Item 1 EACH (Dulaglutide [Trulicity] 0.75 MG/0.5 ML Pen.Injctr) SC SCH (15:15)
[2022-11-14] MEDS ORDERED: HYDROmorphone 0.5 MG/0.5 ML SYRINGE ONE ×2 (15:18→15:33)
[2022-11-14] MEDS ORDERED: Ketorolac Tromethamine 30 MG/ML VIAL ONE (15:43)
[2022-11-14] MEDS ORDERED: Fentanyl 100 MCG/2 ML VIAL ONE ×2 (16:06→16:48)
[2022-11-14] MEDS ORDERED: Diazepam 5 MG TAB PO PRN (16:12)
[2022-11-14] MEDS ORDERED: Diazepam 5 MG TAB PO SCH (16:15)
[2022-11-14] MEDS ORDERED: Non-Formulary Item 1 EACH (Insulin Lispro [Humalog Kwikpen U-100] 100 UNIT/ML Insuln.Pen) SC SCH (17:00)
[2022-11-14] MEDS ORDERED: Potassium Chloride 10 MEQ TAB PO SCH (21:00)
[2022-11-14] MEDS: HYDROcodone/Acetaminophen 7.5/325 mg Tablet PO PRN (21:01)
[2022-11-14] MEDS: Clindamycin/D5W 900 MG in Premix Bag 1 BAG IVPB SCH (21:02)
[2022-11-14] MEDS: metFORMIN XR 500 MG TAB PO SCH (21:02)
[2022-11-14 23:03] VITALS: BMI 25.0
[2022-11-15] MEDS: Sodium Chloride 0.9% 1,000 ML IV SCH ×2 (00:14→04:33)
[2022-11-15] MEDS: Clindamycin/D5W 900 MG in Premix Bag 1 BAG IVPB SCH (03:19)
[2022-11-15 08:31] VITALS: BP 137/73; TEMP 98.4
[2022-11-15] MEDS ORDERED: Empagliflozin 25 MG TAB PO SCH (09:00)
[2022-11-15] MEDS ORDERED: Insulin Glargine 30 UNITS/0.3 ML VIAL SC SCH (09:00)
[2022-11-15] MEDS ORDERED: Losartan 25 MG TAB PO SCH (09:00)
[2022-11-15] MEDS ORDERED: Levothyroxine Sodium 75 MCG TAB PO SCH (09:00)
[2022-11-15] MEDS: metFORMIN XR 500 MG TAB PO SCH (09:04)
[2022-11-15] MEDS: HYDROcodone/Acetaminophen 7.5/325 mg Tablet PO PRN (09:29)
[2022-11-21] MEDS ORDERED: Ergocalciferol 1.25 MG(50,000 UNITS) CAP PO SCH (09:00)
== END 2022-11-15 13:06 | disposition home or self-care (01) | DRG 472 ==
LOC: SURG A 11-14 10:48
PROVIDERS: ADMIT Surgery; ATTEND Surgery
PROC: 0RG20A0 Fusion of 2 or more Cervical Vertebral Joints with Interbody Fusion Device, Anterior Approach, Anterior Column, Open Approach (ICD-10-PCS; principal; 2022-11-14)
PROC: 00NW0ZZ Release Cervical Spinal Cord, Open Approach (ICD-10-PCS; 2022-11-14)
PROC: 01N10ZZ Release Cervical Nerve, Open Approach (ICD-10-PCS; 2022-11-14)
PROC: 0RB30ZZ Excision of Cervical Vertebral Disc, Open Approach (ICD-10-PCS; 2022-11-14)
DX: M48.02 Spinal stenosis, cervical region (principal); G99.2 Myelopathy in diseases classified elsewhere; M54.12 Radiculopathy, cervical region; M48.062 Spinal stenosis, lumbar region with neurogenic claudication; Z79.899 Other long term (current) drug therapy; Z79.82 Long term (current) use of aspirin
CPT/HCPCS: 36416; C1713; C1768; J1100; J1170; J1815; J1885; J1956; J2370; J2405; J2704; J2765; J3010; J3490; J7050; J7999; U0002

== ENCOUNTER 2022-12-19 13:17 | Outpatient (CLI) | payer MEDICARE, BC | END 2022-12-19 13:18 | disposition home or self-care (01) | LOC: TBSIIMAG 13:17 | PROVIDERS: ATTEND Surgery | DX: M47.22 Other spondylosis with radiculopathy, cervical region (principal); Z98.890 Other specified postprocedural states | CPT/HCPCS: 72040 ==

== ENCOUNTER 2023-03-12 10:53 | Outpatient (CLI) | payer MEDICARE, BC | END 2023-03-12 10:54 | disposition home or self-care (01) | LOC: RAD 10:53 | PROVIDERS: ATTEND Student in an Organized Health Care Education/Training Program | DX: R13.14 Dysphagia, pharyngoesophageal phase (principal); R63.30 Feeding difficulties, unspecified | CPT/HCPCS: 74230 ==

== ENCOUNTER 2023-03-15 11:16 | Outpatient (CLI) | payer MEDICARE, BC ==
[2023-03-15 12:47] LABS: Hemoglobin 12.5 g/dL (12.0-15.5); Mean Corpuscular HGB CONC 31.4 g/dL (32.0-36.0); Mean Corpuscular Hemoglobin 27.8 pg (27.0-33.0); Mean Corpuscular Volume 88.4 fl (81.6-98.3); Mean Platelet Volume 10.7 fl (7.4-10.4); Platelet Count 182 10x3/uL (150-450); Prothrombin Time 10.8 sec (9.5-12.1); RBC Distribution Width 14.3 % (11.5-14.5); White Blood Cell (WBC) Count 5.5 10x3/uL (3.5-10.5)
[2023-03-15 12:53] LABS: Anion Gap 17 mmol/L (10-20); BUN (Urea Nitrogen) 8 mg/dL (9.8-20.1); Calc. Creatinine Clearance 0 mL/min (70-130); Calcium 9.3 mg/dL (7.8-10.44); Carbon Dioxide 21 mmol/L (23-31); Chloride 109 mmol/L (98-107); Estimated GFR 95; Glucose 82 mg/dL (80-115); Potassium 4.5 mmol/L (3.5-5.1); Sodium 142 mmol/L (136-145)
== END 2023-03-15 11:17 | disposition home or self-care (01) ==
LOC: LABBT 11:16
PROVIDERS: ATTEND Surgery
DX: Z01.818 Encounter for other preprocedural examination (principal); M51.26 Other intervertebral disc displacement, lumbar region; M48.062 Spinal stenosis, lumbar region with neurogenic claudication
CPT/HCPCS: 80048; 85027; 85610; 85730; 93005; 93010

== ENCOUNTER 2023-03-20 10:18 | Observation (INO) | payer MEDICARE, BC ==
[2023-03-15 12:02] VITALS: BMI 25.0
[2023-03-20] MEDS ORDERED: Levofloxacin 500 mg/D5W 100 ml Premix Bag ONE (11:17)
[2023-03-20] MEDS ORDERED: Thrombin 5000 UNITS/5 ML VIAL ONE (12:36)
[2023-03-20] MEDS ORDERED: Vancomycin 1 GM VIAL ONE ×2 (12:36→15:16)
[2023-03-20] MEDS ORDERED: Ondansetron PF 4 MG/2 ML Vial IVP PRN (12:43)
[2023-03-20] MEDS ORDERED: traMADol HCl 50 MG TAB PO PRN (12:43)
[2023-03-20] MEDS ORDERED: Acetaminophen 325 MG TAB PO PRN (12:43)
[2023-03-20] MEDS ORDERED: hydrALAZINE 20 MG/ML VIAL SLOW IVP PRN (12:47)
[2023-03-20] MEDS ORDERED: tiZANidine HCl 4 MG TAB PO PRN (12:47)
[2023-03-20] MEDS ORDERED: fentaNYL PF 100 MCG/2 ML SYRINGE ONE (12:49)
[2023-03-20] MEDS ORDERED: Magnesium 5 GM/10 ML VIAL ONE (12:49)
[2023-03-20] MEDS ORDERED: Clindamycin/D5W 600 mg/50 ml Premix Bag ONE (12:58)
[2023-03-20] MEDS ORDERED: ePHEDrine Sulfate 50 MG/10 ML VIAL ONE (13:19)
[2023-03-20] MEDS ORDERED: PROPOFOL 200 MG/20 ML VIAL ONE (13:19)
[2023-03-20] MEDS ORDERED: Dexamethasone 20 MG/5 ML VIAL ONE (13:19)
[2023-03-20] MEDS ORDERED: Ondansetron PF 4 MG/2 ML Vial ONE (13:19)
[2023-03-20] MEDS ORDERED: Rocuronium Bromide 10 MG/ML (10ML VIAL) ONE (13:19)
[2023-03-20] MEDS ORDERED: Clindamycin/D5W 600 MG in Premix Bag 1 BAG IVPB SCH (14:00)
[2023-03-20] MEDS ORDERED: fentaNYL 50 mcg/mL 1 mL Vial ONE (16:02)
[2023-03-20] MEDS: Morphine 2 MG/ML VIAL SLOW IVP PRN ×2 (16:54→20:41)
[2023-03-20] MEDS: HYDROcodone/Acetaminophen 7.5/325 mg Tablet PO PRN ×2 (16:54→23:43)
[2023-03-20] MEDS: Sodium Chloride 0.9% 1,000 ML IV SCH (16:59)
[2023-03-20] MEDS ORDERED: HumaLOG 300 UNITS/3 ML VIAL SC SCH (17:00)
[2023-03-20] MEDS: metFORMIN XR 500 MG TAB PO SCH (20:34)
[2023-03-20] MEDS: Clindamycin/D5W 600 MG in Premix Bag 1 BAG IVPB SCH (20:36)
[2023-03-20] MEDS: Acetaminophen/Codeine 30-300mg Tablet PO PRN (20:36)
[2023-03-20] MEDS ORDERED: Potassium Chloride 10 MEQ TAB PO SCH (21:00)
[2023-03-20] MEDS ORDERED: CO Q-10 CAPSULE 100 MG PO SCH (21:00)
[2023-03-20] MEDS ORDERED: Pregabalin 75 MG CAP PO SCH (21:00)
[2023-03-21] MEDS: Sodium Chloride 0.9% 1,000 ML IV SCH (03:44)
[2023-03-21] MEDS: Clindamycin/D5W 600 MG in Premix Bag 1 BAG IVPB SCH (05:32)
[2023-03-21] MEDS: Acetaminophen/Codeine 30-300mg Tablet PO PRN (05:32)
[2023-03-21] MEDS ORDERED: Levothyroxine Sodium 75 MCG TAB PO SCH (06:00)
[2023-03-21] MEDS ORDERED: Insulin Glargine 30 UNITS/0.3 ML VIAL SC SCH (09:00)
[2023-03-21] MEDS ORDERED: Losartan 25 MG TAB PO SCH (09:00)
[2023-03-21] MEDS ORDERED: Rosuvastatin 20 MG TAB PO SCH (09:00)
[2023-03-21] MEDS ORDERED: Empagliflozin 25 MG TAB PO SCH (09:00)
[2023-03-21] MEDS: metFORMIN XR 500 MG TAB PO SCH (09:22)
[2023-03-21 11:52] VITALS: BP 112/66; TEMP 98.5
[2023-03-27] MEDS ORDERED: Ergocalciferol 1.25 MG(50,000 UNITS) CAP PO SCH (09:00)
== END 2023-03-21 11:55 | disposition home or self-care (01) ==
LOC: SDC 10:18 → SURG A 16:42
PROVIDERS: ADMIT Surgery; ATTEND Surgery
PROC: 01NB0ZZ Release Lumbar Nerve, Open Approach (ICD-10-PCS; principal; 2023-03-20)
DX: M48.062 Spinal stenosis, lumbar region with neurogenic claudication (principal); M51.26 Other intervertebral disc displacement, lumbar region; Z79.4 Long term (current) use of insulin; Z79.82 Long term (current) use of aspirin; Z79.84 Long term (current) use of oral hypoglycemic drugs; Z79.85 Long-term (current) use of injectable non-insulin antidiabetic drugs; Z79.890 Hormone replacement therapy; Z79.899 Other long term (current) drug therapy; Z88.0 Allergy status to penicillin; Z91.040 Latex allergy status; Z91.048 Other nonmedicinal substance allergy status; Z98.1 Arthrodesis status
CPT/HCPCS: 63047; 63048; C1713; J3010; J1100; J1815; J1956; J2272; J2405; J2704; J3370; J3475; J3490; J7050

== ENCOUNTER 2023-09-18 13:38 | Outpatient (CLI) | payer MEDICARE, BC | END 2023-09-18 13:39 | disposition home or self-care (01) | LOC: BICRAD 13:38 | PROVIDERS: ATTEND Family Medicine | DX: M53.3 Sacrococcygeal disorders, not elsewhere classified (principal) | CPT/HCPCS: 72220 ==

== ENCOUNTER 2024-09-09 11:03 | Outpatient (CLI) | payer MEDICARE | END 2024-09-09 11:04 | disposition home or self-care (01) | LOC: BICRAD 11:03 | PROVIDERS: ATTEND Family Medicine | DX: J20.9 Acute bronchitis, unspecified (principal) | CPT/HCPCS: 71046 ==